=== PATIENT | male | born 1955 | race Caucasian/White ===

== ENCOUNTER 2025-05-31 17:21 | Observation (INO) | payer BC, MEDICARE ==
[2025-05-31] MEDS: Ondansetron 4 MG/2 ML SDV IVPUSH ONE (17:39)
[2025-05-31] MEDS: Lactated Ringers 1,000 ML IV SCH (17:40)
[2025-05-31 17:56] LABS: BASOPHILS ABSOLUTE AUTO 0.1 K/mm3 (0.0-0.2); BASOPHILS PERCENT AUTO 0.9 % (0.0-1.0); EOSINOPHILS ABSOLUTE AUTO 0.3 K/mm3 (0.0-0.4); EOSINOPHILS PERCENT AUTO 2.5 % (0.0-6.0); IMMATURE GRAN ABSOLUTE AUTO 0.06 K/mm3 (0.00-0.05); IMMATURE GRAN PERCENT AUTO 0.6 % (0.0-0.4); LYMPHOCYTES ABSOLUTE AUTO 4.3 K/mm3 (1.0-4.8); LYMPHOCYTES PERCENT AUTO 39.5 % (24.0-44.0); MEAN PLATELET VOLUME 9.2 fl (9.4-12.4); MONOCYTES ABSOLUTE AUTO 0.7 K/mm3 (0.0-0.8); MONOCYTES PERCENT AUTO 6.7 % (0.0-8.0); NEUTROPHILS ABSOLUTE AUTO 5.4 K/mm3 (1.8-7.7); NEUTROPHILS PERCENT AUTO 49.8 % (41.0-71.0); NRBC ABSOLUTE 0.00 (0.00-0.02); NRBC PERCENT 0.0 % (0.0-0.2); PLATELET COUNT,PLT 283 K/mm3 (150-400); RED BLOOD CELL COUNT 5.33 M/mm3 (4.52-5.90); WHITE BLOOD CELL COUNT,WBC 10.83 K/mm3 (3.9-11.3)
[2025-05-31 18:26] LABS: A/G RATIO 1.1 (1-2); ALANINE AMINOTRANSFERASE,ALT 34 U/L (16-63); ASPARTATE AMNIOTRANSFERASE,AST 22 U/L (15-37); BILIRUBIN TOTAL 0.6 mg/dL (0.2-1.0); BLOOD UREA NITROGEN,BUN 27 mg/dL (7-18); CARBON DIOXIDE,CO2 26 mEq/L (21-32); CHLORIDE,CL 103 mEq/L (98-107); CREATININE 1.7 mg/dL (0.7-1.3); ESTIMATED GFR 43 mL/min (>60); GLUCOSE RANDOM 177 mg/dL (70-99); POTASSIUM,K 3.6 mEq/L (3.5-5.1); PROTEIN TOTAL,TP 7.2 g/dl (6.4-8.2); SODIUM,NA 140 mEq/L (136-145)
[2025-05-31] MEDS: Iopamidol 612 MG/ML 100 ML Bottle IVPUSH ONE (19:03)
[2025-05-31] MEDS: Iopamidol 612 MG/ML 30 ML SDV IVPUSH ONE (19:03)
[2025-05-31] MEDS: Sodium Chloride 0.9% 10 ML Syringe FLUSH PRN (19:04)
[2025-05-31] MEDS ORDERED: Acetaminophen/oxyCODONE 325-5 MG Tab PO PRN (20:48)
[2025-05-31] MEDS: Lactated Ringers 1,000 ML IV ONE (20:58)
[2025-06-01] MEDS: Acetaminophen/oxyCODONE 325-5 MG Tab PO PRN (02:02)
[2025-06-01 02:33] LABS: APPEARANCE,URINE CLEAR (Clear); GLUCOSE,URINE NEGATIVE (Negative); OCCULT BLOOD,URINE NEGATIVE (Negative)
[2025-06-01 02:45] LABS: EPITHELIAL CELLS,URINE 0-5 /hpf (0-5)
== END 2025-06-01 15:49 | disposition home or self-care (01) ==
LOC: JD.ED 17:21 → JD.MS 19:33
PROVIDERS: ADMIT Surgery; ATTEND Surgery
DX: S22.42XA Multiple fractures of ribs, left side, initial encounter for closed fracture (principal); S27.0XXA Traumatic pneumothorax, initial encounter; E78.00 Pure hypercholesterolemia, unspecified; I10 Essential (primary) hypertension; E11.9 Type 2 diabetes mellitus without complications; Z79.84 Long term (current) use of oral hypoglycemic drugs; Z79.899 Other long term (current) drug therapy; V80.010A Animal-rider injured by fall from or being thrown from horse in noncollision accident, initial encounter
CPT/HCPCS: 36415; 51798; 70450; 71045; 71260; 72125; 74177; 80053; 81001; 82947; 83690; 85025; 93005; 94760; A9270; J2405; J7120; Q9967; 93010; 99285; J1171